=== PATIENT | female | born 1995 | race Two or more races ===

== ENCOUNTER 2021-06-05 13:48 | Outpatient (CLI) | payer OTHER, SELFPAY ==
[2021-06-08 00:07] LABS: Chlamydia By Nucleic Acid AMP Negative (Negative)
[2021-06-08 09:21] LABS: Gonococcus By Nucleic Acid AMP Negative (Negative)
[2021-06-11 16:00] LABS: HPV Reflexed? NOT INDICATED
== END 2021-06-05 23:59 | disposition home or self-care (01) ==
LOC: LABSPEC 13:51
PROVIDERS: Visit Provider Obstetrics & Gynecology
DX: Z12.4 Encounter for screening for malignant neoplasm of cervix (principal); Z11.3 Encounter for screening for infections with a predominantly sexual mode of transmission
CPT/HCPCS: 87491; 87591; 88175; G0145